=== PATIENT | male | born 1980 | race Two or more races ===

== ENCOUNTER 2025-05-07 16:02 | Emergency (ER) | payer MEDICAID, SELFPAY ==
[2025-05-07 16:04] VITALS: BMI 31.1
[2025-05-07 16:14] VITALS: BP 130/80; PULSE 117; RESP 19; TEMP 37.7; O2SAT 98
--- NOTE | 2025-05-07 16:24 | XR_ITS ---
Examination: Foot, left, 3 views Technique: AP, oblique, lateral views foot, 3 views Date and time of exam: May 07, 2025 1629 hours INDICATIONS: Nonhealing wound left fourth digit noticed beginning one week ago, diabetic FINDINGS: Prominent soft tissue swelling involving fourth digit No moise cortical bone destruction No foreign body IMPRESSION: No moise cortical bone destruction As clinically warranted, consider MRI foot without contrast follow-up
--- NOTE | 2025-05-07 16:25 | PD.EDRME ---
Rapid Medical Screening Exam E Arrival date/time: 05/07/25 16:02 45-year-old male with a history of type 2 diabetes presents to the emergency room with a chief complaint of a diabetic foot ulcer to his left foot fourth digit. Patient states he was sent over by his primary care provider for x-rays to rule out osteomyelitis I have greeted and performed a focused initial assessment of this patient. A comprehensive ED assessment and evaluation of the patient, analysis of all test results, and completion of the medical decision making process will be conducted by additional ED providers. Chief Complaint: Wound/Laceration Vital signs: Vital Signs Temperature 99.8 F 05/07/25 16:14 Pulse Rate 117 H 05/07/25 16:14 Respiratory Rate 19 05/07/25 16:14 Blood Pressure 130/80 05/07/25 16:14 Pulse Oximetry (%) 98 05/07/25 16:14 Oxygen Delivery Method Room Air 05/07/25 16:14 Vital signs reviewed by provider: Yes
[2025-05-07 16:52] LABS: Basophils # (Auto) 0.0 Thou/mm3 (0.0-0.2); Basophils % (Auto) 0 % (0-2.5); Eosinophils # (Auto) 0.0 Thou/mm3 (0.0-0.5); Eosinophils % (Auto) 0 % (0-10); Hematocrit 40.7 % (41.0-53.0); Hemoglobin 14.0 g/dL (13.5-16.0); Immature Granulocytes Auto 0.04 Thou/mm3 (0.00-0.00); Lymphocytes # (Auto) 1.8 Thou/mm3 (1.0-4.8); Lymphocytes % (Auto) 13 % (10-50); Mean Corpuscular HGB Conc 34.4 g/dl (31.0-37.0); Mean Corpuscular Hemoglobin 30.9 pg (25.0-35.0); Mean Corpuscular Volume 90 fL (80-100); Monocytes # (Auto) 1.1 Thou/mm3 (0.0-0.8); Monocytes % (Auto) 8 % (0-12); Neutrophils # (Auto) 10.7 Thou/mm3 (1.8-7.7); Neutrophils % (Auto) 79 % (37-80); Nucleated Red Blood Cell # 0.00 Thou/mm3 (0.00-0.00); Nucleated Red Blood Cell % 0 /100 WBC (0); Platelet Count 278 Thou/mm3 (140-440); RDW Standard Deviation 38.5 fL (35.1-43.9); Red Blood Count 4.53 Miln/mm3 (4.50-5.90); White Blood Count 13.6 Thou/mm3 (3.8-10.6)
[2025-05-07 16:53] LABS: Lactate (Lactic Acid) 1.3 mMol/L (0.4-2.0)
[2025-05-07 17:22] LABS: Alanine Aminotransferase 11 U/L (10-49); Albumin, Serum 4.6 gm/dL (3.5-5.0); Albumin/Globulin Ratio 1.6 (1.2-2.2); Alkaline Phosphatase 56 U/L (46-116); Anion Gap 9 (7-16); Aspartate Amino Transferase 11 U/L (0-34); BUN/Creatinine Ratio 15 Ratio (12-20); Bilirubin,Total 1.3 mg/dL (0.3-1.2); Blood Urea Nitrogen 15 mg/dL (9-23); C-Reactive Protein 16.1 mg/dL (0.0-0.9); Calcium 9.6 mg/dL (8.3-10.6); Calcium (Corrected) 9.6 mg/dL (8.5-10.1); Carbon Dioxide 27.4 mMol/L (20.0-31.0); Chloride 102 mMol/L (98-107); Creatinine (Component) 1.0 mg/dL (0.6-1.3); Estimated Creatinine Clearance 101.1 mL/min (>60); Globulin 2.9 gm/dL (2.3-3.5); Glucose 241 mg/dL (74-106); Osmolality,Calculated 284 (275-295); Potassium 4.8 mMol/L (3.4-5.1); Procalcitonin 0.09 ng/ml (0.0-0.49); Sodium 138 mMol/L (136-145); Total Protein 7.5 gm/dL (5.7-8.2); eGFR > 60 See Note
[2025-05-07 17:59] LABS: Sed Rate (ESR) 41 mm/hr (0-15)
--- NOTE | 2025-05-07 20:43 | PD.EDWOUND ---
ED Wound/Laceration-RME/HPI General Chief Complaint: Wound/Laceration Stated Complaint: LEFT TOE INFECTED Arrival date/time: 05/07/25 16:02 RME / HPI RME / HPI narrative: 05/07/25 16:02 45-year-old male with a history of type 2 diabetes presents to the emergency room with a chief complaint of a diabetic foot ulcer to his left foot fourth digit. Patient states he was sent over by his primary care provider for x-rays to rule out osteomyelitis I have greeted and performed a focused initial assessment of this patient. A comprehensive ED assessment and evaluation of the patient, analysis of all test results, and completion of the medical decision making process will be conducted by additional ED providers. DR. PRINCE MAIN ED EVALUATION: 45 y/o male with Hx of Type II DM presents to ED c/o wound to the left foot 4th digit with redness and swelling x 1 week. Patient states he has been applying a topical medication which mildly improved symptoms and allowed the wound to close up. He is taking PO medication for management of DM. Patient admits to high sugar intake in the past, but has recently made a change to his diet, including fasting. 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 He is on his feet approximately 100 hours per week. No other concerns or complaints expressed at this time. Related Data Previous Rx's ?Medication ?Instructions ?Recorded cephalexin 500 mg capsule 1,000 mg (2 x 500 mg) PO BID 14 05/07/25 days #56 caps sulfamethoxazole 800 1 tab PO BID 14 days #28 tabs 05/07/25 mg-trimethoprim 160 mg tablet (Bactrim DS) Allergies Allergy/AdvReac Type Severity Reaction Status Date / Time codeine Allergy Mild RASH Verified 05/07/25 16:04 Review of Systems Review of Systems Systems Reviewed: All systems reviewed, normal except as documented Past Medical History Past Medical History ENDOCRINE: Positive Diabetes Mellitus Type 2 Social History SMOKING STATUS: Never smoker ED Exam Narrative Physical exam: Generally patient is alert in no obvious distress heart is regular rate and rhythm lungs auscultation equal bilaterally abdomen soft bowel sounds present nondistended nontender extremities show purpleish discoloration of the left fourth toe with a possible small open wound to the lateral portion of the left fourth toe. No obvious ulceration. Patient does have a palpable dorsalis pedis pulse. Course Quality Measures none Orders Category Date Time Status XR foot comp LT min 3V Stat Exams 05/07/25 16:24 Completed Blood Culture (Lab) Stat Lab 05/07/25 16:34 Received CBC Stat Lab 05/07/25 16:31 Completed CMP [Comprehensive Metabolic Panel] Stat Lab 05/07/25 16:31 Completed CRP [C-Reactive Protein] Stat Lab 05/07/25 16:31 Completed ESR [Sed Rate (ESR)] Stat Lab 05/07/25 16:31 Completed Lactate (Lactic Acid) Stat Lab 05/07/25 16:31 Completed Procalcitonin Stat Lab 05/07/25 16:31 Completed Vital Signs Vital signs: Vital Signs Temperature 99.8 F 05/07/25 16:14 Pulse Rate 117 H 05/07/25 16:14 Respiratory Rate 19 05/07/25 16:14 Blood Pressure 130/80 05/07/25 16:14 Pulse Oximetry (%) 98 05/07/25 16:14 Oxygen Delivery Method Room Air 05/07/25 16:14 Wound / Laceration MDM Narrative MDM Narrative:: Scribe Attestation: I, Amy Fu, am scribing for and in the presence of Dr. Prince. Provider Notation: Although this document has been carefully reviewed, there may still be some phonetic and other typographical errors.? These errors are purely grammatical due to imperfections in the software program and should not be construed in any way to? compromise the substance of the patient's medical care during this visit. I interpreted all labs. X-ray of the left foot showed no evidence of cortical disruption to suggest osteomyelitis. Patient will be started on cephalexin and Bactrim to be taken as prescribed. Follow-up with regular doctor for podiatry referral. Elevate left foot is much as possible. Patient will be kept on light duty at work for the next 2 weeks. Patient data External records reviewed:: [facility] previous records (No prior ED records available for review.) Clinical information provided by:: patient Social determinants that could affect healthcare access:: none Patient has the following chronic illnesses:: Type II DM How is presenting disease/condition affected by chronic disease/condition?: exacerbated by Evaluation data The following diagnostics were reviewed and interpreted by me:: lab results and radiology exam(s) Lab and/or radiology exams considered but not ordered:: None Interpretation Summary: RADIOLOGY Left Foot X-Ray: FINDINGS: Prominent soft tissue swelling involving fourth digit No moise cortical bone destruction No foreign body IMPRESSION: No moise cortical bone destruction As clinically warranted, consider MRI foot without contrast follow-up Medications / Prescriptions Medications or Prescriptions considered but not ordered:: None Medication administrations:: See above if any Consultations Consultation(s) initiated? (list below): No Diagnosis Wound Differential Diagnosis: laceration, abscess, abrasion, avulsion of skin and other (Cellulitis, Insect bite) Most likely diagnosis given after review of the tests above:: None Admission Indicated Admission indicated?: not indicated Explain why admission is indicated or not indicated:: Patent does not meet admission criteria. Admission Request Was there a request for admission?: No Disposition Plan Disposition Plan: Discharge Discharge Attestation Discharge Attestation: The patient and all family members were given an opportunity to ask questions and understood the discharge instructions. Discharge instructions specifically effects, indications for sooner follow up or return to the emergency department, and the expected course of current diagnosis. Patient condition: Stable Discharge Plan Plan Patient Disposition: HOME (Self Care) Prescriptions/Referrals Prescriptions/Med Rec: New cephalexin 500 mg capsule 1,000 mg PO BID 14 Days Qty: 56 0RF sulfamethoxazole-trimethoprim [Bactrim DS] 800-160 mg tablet 1 tab PO BID 14 Days Qty: 28 0RF Referrals: Pedro Go PA-C [Primary Care Provider] - In 1 week Problem List Clinical Impression: Infection of toe, Diabetes mellitus Patient/Caregiver Discharge Instructions Additional Instructions: Take the antibiotics as prescribed. Light duty at work for the next 2 weeks. Follow-up with your doctor for podiatry referral. Print Language: [place] Island[place] Stand Alone Forms: Farrah Award Info., Patient Portal Info Letter
[2025-05-07 21:08] VITALS: BP 128/68; PULSE 77; RESP 18; TEMP 36.6; O2SAT 98
== END 2025-05-07 21:09 | disposition home or self-care (01) ==
PROVIDERS: Nurse Practitioner Family; Emergency Provider Emergency Medicine; PCP Physician Assistant Medical
DX: L08.9 Local infection of the skin and subcutaneous tissue, unspecified (principal); E11.9 Type 2 diabetes mellitus without complications
CPT/HCPCS: 36415; 73630; 80053; 83605; 84145; 85025; 85652; 86140; 87040; 99283